=== PATIENT | female | born 1965 | race Caucasian/White ===

== ENCOUNTER → 2016-05-09 | Outpatient (CLI) | payer OTHER ==
--- NOTE | 2016-05-09 14:13 | DI ---
History: Right knee pain. 4 view study. Prior exam: None. Findings: Knee articulation appears normal regarding preservation of major joint compartments. AP vie w shows some lateral placement of the patella but this may be projectional since the sunrise view of the patellofemoral junction appears free of eccentricity. There may be some thinning of the patellofe moral junction. Mild squaring is seen of the articular surface. 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 Act ual lateral displacement of patella is unlikely
== END ==
LOC: ORTHO 13:12
PROVIDERS: ATTEND Orthopaedic Surgery
DX: M25.561 Pain in right knee (principal); M25.461 Effusion, right knee; M17.11 Unilateral primary osteoarthritis, right knee; F17.210 Nicotine dependence, cigarettes, uncomplicated
CPT/HCPCS: 73564

== ENCOUNTER → 2016-05-16 | Outpatient (CLI) | payer OTHER ==
--- NOTE | 2016-05-16 16:17 | DI ---
MRI LEFT KNEE SCAN, 05/16/2016 8:57 AM: Clinical History: Left knee pain. Previous Exam: None at this facility. Technique: Axial, coronal, and sagittal PD and fat saturated PD; axial T1 weighted. There is no soft tissue edema. A large joint effusion is present with synovitis in the suprapatellar bursa and in the region of Hoffa's fat pad. No abnormal bone signal pattern is present. The medial an d lateral collateral ligaments, and the anterior cruciate ligament are normal. There is a partial tea r in the superior portion of the posterior cruciate ligament, and there is similar chronic partial te ars in the meniscotibial and meniscofemoral ligaments as well as the medial patellofemoral ligament a nd the medial retinaculum. There is mild lateral subluxation of the patella. The medial and lateral m enisci, the quadriceps and popliteus tendons and the tendons of the medial and lateral heads of the g astrocnemius muscle are normal. There is mild tendinosis in the distal aspect of the patellar tendon. The articular surfaces of all 3 compartments are intact. Readin. There is a large joint effusion with synovitis in the region of Hoffa's fat pad and in the suprap atellar bursa. There are chronic partial tears in the superior third of the PCL, in the meniscotibial and meniscofemoral ligaments, the medial retinaculum, and the medial patellofemoral ligament. There is mild lateral subluxation of the patella. There is mild tendinosis in the patellar tendon distally. 2. The MCL, LCL, ACL, medial and lateral menisci, the quadriceps and popliteus tendons, and the tend ons of the medial and lateral heads of the gastrocnemius muscle are normal. The articular surfaces of all 3 compartments are intact.
== END ==
LOC: MRI 08:52
PROVIDERS: ATTEND Orthopaedic Surgery
DX: M25.562 Pain in left knee (principal); M25.462 Effusion, left knee; M23.8X2 Other internal derangements of left knee; S76.112A Strain of left quadriceps muscle, fascia and tendon, initial encounter
CPT/HCPCS: 73721

== ENCOUNTER → 2016-05-19 | Outpatient (CLI) | payer OTHER ==
--- NOTE | 2016-05-19 14:43 | DI ---
MRI RIGHT KNEE SCAN, 05/19/2016 1:15 PM: Clinical History: Right knee pain. Previous Exam: None at this facility. Technique: Axial, coronal, and sagittal PD and fat saturated PD; axial T1 weighted. There is no soft tissue edema. There is a small to moderate joint effusion. No abnormal bone signal p attern is present. The medial collateral ligament is normal but there is intermediate signal intensit y medial patellofemoral ligament and the medial retinaculum consistent with a chronic partial tear. T he lateral collateral ligament and the anterior and posterior cruciate ligaments as well as the media l and lateral menisci are normal. The quadriceps and popliteus tendons and the tendons of the medial and lateral heads of the gastrocnemius muscle are normal. There is tendinosis in the distal aspect of the patellar tendon. Hoffa's fat pad and the articular surfaces of the patellofemoral and the latera l compartment are normal. There is thinning of the articular surfaces of the medial compartment witho ut evidence of a chondral defect. Readin. Small to moderate joint effusion. There are chronic partial tears or chronic sprains with laxity involving the medial patellofemoral ligament and the medial retinaculum. There is patellar tendinosis distally and there is thinning of the articular surfaces of the medial compartment. 2. The MCL, ACL, PCL, LCL, medial and lateral menisci, and the quadriceps and popliteus tendons in t he tendons of the medial and lateral heads of the gastrocnemius muscle are normal. The articular surf aces of the patellofemoral and lateral compartments are intact.
== END ==
LOC: MRI 13:12
PROVIDERS: ATTEND Orthopaedic Surgery
DX: M25.561 Pain in right knee (principal); M25.461 Effusion, right knee; M23.8X1 Other internal derangements of right knee
CPT/HCPCS: 73721

== ENCOUNTER → 2016-11-10 | Outpatient (CLI) | payer OTHER | LOC: MOB LAB 11:05 | DX: L02.818 Cutaneous abscess of other sites (principal) | CPT/HCPCS: 87070; 87205 ==